=== PATIENT | male | born 1945 | race Caucasian/White ===

== ENCOUNTER → 2023-03-31 15:27 | Outpatient (REF) | payer MEDICARE, OTHER, SELFPAY | LOC: CLAB 15:27 | PROVIDERS: ATTENDING PHYSICIAN Nurse Practitioner | DX: N39.0 Urinary tract infection, site not specified (principal) | CPT/HCPCS: 87086 ==

== ENCOUNTER → 2023-04-20 10:59 | Outpatient (REF) | payer MEDICARE, OTHER, SELFPAY ==
[2023-04-20 12:55] LABS: PSA, Total - Diagnostic < 0.06 ng/ml (0.0-4.0)
== END ==
LOC: REG 10:59
PROVIDERS: ATTENDING PHYSICIAN Urology; FAMILY PHYSICIAN Internal Medicine
DX: N30.10 Interstitial cystitis (chronic) without hematuria (principal); C61 Malignant neoplasm of prostate
CPT/HCPCS: 36415; 84153

== ENCOUNTER → 2023-05-19 14:10 | Outpatient (REF) | payer MEDICARE, OTHER, SELFPAY | LOC: RAD 14:10 | PROVIDERS: ATTENDING PHYSICIAN Nurse Practitioner | DX: S80.02XA Contusion of left knee, initial encounter (principal) | CPT/HCPCS: 73564 ==

== ENCOUNTER → 2023-08-12 06:26 | Day surgery (SDC) | payer MEDICARE, OTHER, SELFPAY | LOC: GI 06:26 | PROVIDERS: ATTENDING PHYSICIAN Internal Medicine | DX: Z12.11 Encounter for screening for malignant neoplasm of colon (principal); D12.2 Benign neoplasm of ascending colon; K63.5 Polyp of colon; K57.30 Diverticulosis of large intestine without perforation or abscess without bleeding; K64.8 Other hemorrhoids; Z80.0 Family history of malignant neoplasm of digestive organs | CPT/HCPCS: 45385; 45380; 88305 ==

== ENCOUNTER → 2023-11-30 07:10 | Outpatient (REF) | payer MEDICARE, OTHER, SELFPAY ==
[2023-11-30 08:50] LABS: ALT (SGPT) 30 U/L (0-50); AST (SGOT) 28 U/L (17-59); Albumin 4.6 g/dl (3.5-5.0); Alkaline Phosphatase 55 U/L (38-126); Blood Urea Nitrogen 17 mg/dl (9-20); Calcium 9.4 mg/dl (8.4-10.2); Carbon Dioxide 24 mmol/L (22-30); Chloride 107 mmol/L (98-107); Glucose 113 mg/dl (70-99); HDL Cholesterol 59 mg/dl; LDL Cholesterol, Calculated 62 mg/dl; Potassium 4.1 mmol/L (3.5-5.1); Sodium 144 mmol/L (135-145); Total Bilirubin 1.3 mg/dl (0.2-1.3); Total Cholesterol 141 mg/dl (50-199); Triglyceride 100 mg/dl (10-149); Very Low Density Lipoprotein 20 mg/dl (0-30); eGFR > 60.00
[2023-11-30 09:06] LABS: Glycohemoglobin (HgbA1c) 5.7 % (4.0-5.6)
[2023-11-30 09:19] LABS: PSA, Total - Screen < 0.06 ng/ml (0.0-4.0); TSH 1.47 uIU/ml (0.47-4.68)
== END ==
LOC: REG 07:10
PROVIDERS: ATTENDING PHYSICIAN Internal Medicine
DX: Z00.00 Encounter for general adult medical examination without abnormal findings (principal); E78.00 Pure hypercholesterolemia, unspecified; Z85.46 Personal history of malignant neoplasm of prostate; R53.83 Other fatigue; I21.4 Non-ST elevation (NSTEMI) myocardial infarction; J98.11 Atelectasis
CPT/HCPCS: 36415; 80053; 80061; 83036; 84443; G0103

== ENCOUNTER 2024-10-17 17:03 | Inpatient (IN) | payer MEDICARE, SELFPAY ==
[2024-10-17] VITALS (9 sets, daily range): BP systolic 129–162; BP diastolic 72–95; BMI 32.5
--- NOTE | 2024-10-17 13:29 | ED.GENMED ---
History of Present Illness
General
Chief Complaint: Chest Pain
Source: patient
Exam Limitations: none
Time Seen by Provider: 10/17/24 13:17
History of Present Illness
History of Present Illness:
Note:
CHIEF COMPLAINT(S)
Light pressure and shortness of breath.
HISTORY OF PRESENT ILLNESS
The patient is a 79-year-old male with a past medical history significant for a triple coronary artery bypass surgery performed four years ago. He presented with symptoms of light pressure and shortness of breath experienced while performing
activities such as dealing with pollen and weeds, which caused him to feel unusually out of breath. The patient states, 'I had a triple bypass on the last few years, and light pressure just putting in the side, and I was out of breath.' He currently
feels fine and denies any present chest pressure. The patient also reports taking medications at night, including aspirin, except for glucosamine which is taken in the morning. He indicates that his pacemaker was recently checked and showed no signs
of malfunction, electrical disturbance, or myocardial infarction.
PAST MEDICAL AND SURIGICAL HISTORY
Triple coronary artery bypass graft performed four years ago.
CHRONIC MEDICAL CONDITIONS SIGNIFICANTLY AFFECTING CARE
History of coronary artery disease necessitating a triple bypass and use of a pacemaker.
MEDICATIONS
Aspirin (taken at night), Glucosamine (taken in the morning), other unspecified medications related to heart health.
REVIEW OF SYSTEMS
- Respiratory: Experienced shortness of breath while dealing with pollen and weeds.
- Cardiovascular: Previously experienced light pressure in the chest; currently, no pressure.
PHYSICAL EXAM
General: Alert, no acute distress.
Skin: Warm, dry.
Head: Normocephalic, atraumatic.
Neck: Supple, trachea midline.
Eye, Ears, Nose, Mouth, and Throat: Pupils equal, round, and reactive to light; oral mucosa moist.
Cardiovascular: S1, S2 heart sounds normal; regular rhythm due to pacemaker function.
Respiratory: Lungs clear to auscultation bilaterally; respirations non-labored.
Gastrointestinal: Abdomen soft, non-tender, not distended.
Extremities: No edema; equal pulses in all extremities.
Neurological: Alert and oriented to person, place, time, and situation; no focal neurological deficits observed.
Musculoskeletal: Normal range of motion, normal strength.
Psychiatric: Cooperative, appropriate mood and affect.
PLAN
- Obtain laboratory tests.
- Perform a chest X-ray to assess pulmonary and cardiac status.
- Monitor anxiety as a contributing factor to the patient�s presentation.
DIFFERENTIAL DIAGNOSIS
The Differential Diagnosis includes, in no particular order and is not limited to:
1. Angina pectoris
2. Exertional dyspnea
3. Congestive heart failure
4. Pulmonary embolism
5. Anxiety-induced shortness of breath
6. Pacemaker malfunction
7. Respiratory infection
8. Physical deconditioning
9. Aortic stenosis
10. Chronic obstructive pulmonary disease (COPD)
EKG
My independent EKG interpretation is:
- Time of EKG: [Not Provided]
- Rhythm: Atrioventricular (AV) dual-paced rhythm
- Heart Rate: 87 bpm
- MD Interval: [Not Provided]
- QRS Duration: [Not Provided, but noted as significant changes observed]
- QT Interval: [Not Provided]
- [place]: [Not Provided]
- Abnormalities: Prolonged conduction noted; significant change from prior EKG
- ST Segment Changes: [Not Provided]
- T Wave Inversions: [Not Provided]
- Other Arrhythmias: [Not Provided]
CARE-UPDATE
10/17/24 - 15:52
The 79-year-old male patient with paroxysmal tachycardia was evaluated by Dr. Hurt, an mortgage loan computation clerk. The decision was made to admit the patient for possible cardiac catheterization. Additional therapies are being considered, pending
further evaluation.
Disposition:
SUMMARY OF ENCOUNTER
The patient, a 79-year-old male, presented to the emergency department with a history of significant health issues, including previous coronary artery disease and a recent history of symptoms such as light pressure and shortness of breath. Despite
the patient feeling currently fine and not experiencing chest pain, he will be admitted for monitoring and assessment by a cardiology team, including an mortgage loan computation clerk, due to concerns of potential underlying cardiac arrhythmias and further
management.
DISPOSITION
Admit
MANAGEMENT OF THE PATIENTS CARE WAS DISCUSSED WITH
The patients care was discussed with the hospitalist and the cardiology team, including an mortgage loan computation clerk, to address concerns of potential toxin-fulminating ventricular tachycardia.
MEDICAL DECISION MAKING
-Number and Complexity of Problems Addressed: Chronic conditions affecting care include coronary artery disease and the use of a pacemaker. Differential diagnosis includes potential cardiac issues such as ventricular tachycardia, which necessitates
admission for further evaluation and management by cardiology specialists.
-Data:
Category 3
Discussion of management with hospitalist and supplier quality engineer, including an mortgage loan computation clerk, to evaluate and treat potential cardiac arrhythmias and ensure proper inpatient care.
DIAGNOSIS
1. Coronary artery disease status post triple coronary artery bypass graft, I25.10
2. Ventricular tachycardia evaluation, I47.2
Past History
Past History
ED Past Medical History: Arrthythmia, Cancer, HTN and Hypercholesterolemia
ED Past Surgical History: Urological (Prostatectomy)
Social History
Tobacco: Non-smoker
Personal:
Living: with family
Phy Exam
Physical Exam
Physical Exam:
.
Scores
Heart Score for Chest Pain Patients
STEMI patient?: No
History: Moderately Suspicious
ECG: Nonspecific Repolarization
Age: >/= 65 years
Risk Factors: >/= 3 Risk Factors or History of CAD
Troponin: </= Normal Limit
Heart Score for Chest Pain Patients: 6
Heart Score Risk: 20.3% MACE over next 6 weeks
Course
Orders/Labs/Results
Orders:
Orders
10/17/24 12:14
Electrocardiogram (*1) Urgent
Reason for Study: Chest Pain
EKG- Treatment ONCE
10/17/24 13:16
Complete Blood Count/With Diff Urgent
Comprehensive Metabolic Panel Urgent
NT-proBNP Urgent
Comment: ADD ON
Troponin I Urgent
10/17/24 13:31
Add On- LAB Urgent
Tests Added?: bnp
IV Insert/Care/Rem.- Treatment PRN
CR Chest - 2 Views Urgent
Comment:
Reason For Exam: short of breath
10/17/24 15:49
Aspirin Chewable [Low Strength Aspirin] 324 mg PO NOW STA
10/17/24 16:33
Admit/Transfer Patient As Directed
Co-Sign Provider:
Level of Care: Inpatient admission
Assign to:: IVU
Physician / Group: Samson Castellano
Diagnosis: chest pain, paroxysmal ventricular tachycardia
Reason for Hospitalization: chest pain, paroxysmal ventricular tachycardia
Expected length of stay greater than two midnights?: Yes
ELOS- Estimated Length of Stay in days: 3
I certify the patient meets the requirements for IP care: Yes
10/17/24 16:34
PRN Pain Medication Management As Directed
May give lesser potent ordered pain med per pt: Yes
preference::
Protocol:: Medication orders for pain may be administered in a
manner that supports deferring to patient preference
when the pt is:
- Requesting an ordered lesser potent pain medication.
Least to most potent pain medications are defined
as: acetaminophen < NSAID < tramadol < opioids
(morphine, oxycodone, hydromorphone).
- Requesting a lesser dose of the same medication IF
ORDERED.
- Requesting a less intrusive route of administration
if both routes are prescribed by the provider (PO <
IV).
10/17/24 16:36
Code Status As Directed
Resuscitation Status: Full Code
10/17/24 17:00
Troponin I Routine
10/17/24 20:00
Metoprolol Xl [Toprol Xl] 50 mg PO BID
10/18/24 Breakfast
NPO
Allow oral meds: Yes
Allow clear liquids: No
Cardiovascular Evaluation IN AM
10/18/24 08:00
Aspirin Chewable [Low Strength Aspirin] 81 mg PO DAILY
Abnormal Lab Results
10/17/24
13:16
MCH 31.1 H pg
(27.0-31.0)
Lymphocytes % 19.4 L %
(20.5-51.1)
Glucose 119 H mg/dl
(70-99)
10/17/24 13:16
10/17/24 13:16
Vital Signs
Initial and Last Documented VS:
Initial Vital Signs
Temp Pulse Resp BP Pulse Ox
98.5 F 76 18 158/95 95
10/17/24 12:15 10/17/24 12:15 10/17/24 12:15 10/17/24 12:15 10/17/24 12:15
Last Documented Vital Signs
Temp Pulse Resp BP Pulse Ox
98.5 F 68 17 155/81 95
10/17/24 12:15 10/17/24 16:30 10/17/24 16:30 10/17/24 16:00 10/17/24 15:15
*Pulse Oximetry
SaO2: 97
Oxygen Mode of Delivery: Room air
Patient hypoxic: no
*Critical Care Note
Total Time (30-74mins, 75-104mins- exclusive of procedures): Not Applicable
ED Attending Note
-
Portions of this chart may have been created with voice recognition software.� Occasional wrong word or��sound alike� substitutions may have occurred due to the inherent limitations of voice recognition software.
Discharge Plan
Departure
Patient Disposition: Admit
Date of Disposition: 10/17/24
Time of Disposition: 15:50
Admit to: IVU
Presentation/result/management discussed w/ accepting MD/DO: Hospitalist
Condition: Good
Discharge Problem:
Ventricular tachycardia (paroxysmal), Chest pain
Prescriptions:
No Action
rivaroxaban [Xarelto] 20 MG tablet
20 mg PO QPM
pantoprazole 40 MG tablet,delayed release (DR/EC)
40 mg PO DAILY Qty: 30 2RF
Metamucil Packet
1 packet PO MOWEFR@0800
glucosamine sulfate [Glucosamine] 500 mg Tablet
500 mg PO DAILY
amitriptyline 10 mg tablet
10 mg PO HS
diazepam 2 mg tablet
2 mg PO HS
metoprolol succinate 50 MG tablet extended release 24 hr
50 mg PO HS
rosuvastatin 40 MG tablet
40 mg PO HS
Referrals:
Ap Pulido MD [Family Provider, Internal Medicine]
Interventions
Interventions:
*Risk Screen - Suicide Last Done: 10/17/24 12:15
*General Assessment Last Done: 10/17/24 12:15
*Neglect/Abuse Screening Last Done: 10/17/24 13:13
*ED- Fall Risk Assessment Last Done: 10/17/24 13:13
*ED COVID-19 Vaccine History Last Done: 10/17/24 13:13
ED- Cardiac Assessment Last Done: 10/17/24 13:13
Discharge Date and Time
Print Language: LITHUANIAN
[2024-10-17 13:33] LABS: Hematocrit 44.5 % (39.0-52.0); Hemoglobin 15.0 g/dL (13.0-18.0); Mean Corp Hgb Conc. 33.7 g/dL (33.0-37.0); Mean Corpuscular Volume 92.1 fL (80.0-94.0); Nucleated Red Blood Cells % 0 % (-); Platelet Count 149 10^3/uL (130-400); Red Cell Dist. Width 13.2 % (11.5-14.5)
[2024-10-17 13:41] LABS: ALT (SGPT) 41 U/L (0-50); AST (SGOT) 29 U/L (17-59); Albumin 4.8 g/dl (3.5-5.0); Alkaline Phosphatase 58 U/L (38-126); Blood Urea Nitrogen 16 mg/dl (9-20); Calcium 9.5 mg/dl (8.4-10.2); Carbon Dioxide 26 mmol/L (22-30); Chloride 106 mmol/L (98-107); Estimated Creatinine Clearance 82 ml/min; Glucose 119 mg/dl (70-99); Potassium 4.0 mmol/L (3.5-5.1); Sodium 140 mmol/L (135-145); Total Protein 7.6 g/dl (6.3-8.2); eGFR > 60.00
[2024-10-17 13:53] LABS: Troponin I < 0.012 ng/ml
--- NOTE | 2024-10-17 15:38 | CON.CAR ---
Addendum entered and electronically signed by Rayo Hurt MD 10/17/24 16:15:
Patient seen and examined
Agree with ADRIANNA Mcnair's note and assessment
Agree with ADRIANNA Mcnair's plan
Discussed presentation with Mr. Bernal. He has had dyspnea on exertion with moderate to strenuous activity for about 2 weeks. Although it is impossible to correlate his NSVT occurred on 13 October which was during his dyspneic on exertion period.
He came to the ER today after having a difficult day yesterday where he noticed dyspnea on exertion and new chest pressure when he was weeding in the garden which lasted 5 to 10 minutes and was better with rest. His ECG is intermittently paced and
he is pain-free when seen. Laboratory values are pending. It does not appear that he had symptoms from the NSVT. He has not had any significant testing since 2020 in terms of echo or stress testing. In 2020 he had CABG x 3 with PRICE to the LAD,
SVG to diagonal, SVG to OM and left atrial appendage clip.
He is appropriately atrial and ventricular sensing and pacing on telemetry.
Physical examination
Alert and x 3
JVP 6
HEENT normocephalic atraumatic
Lungs clear to auscultation bilaterally
Cor regular no murmurs rubs or gallops
Abdomen soft nontender positive bowel sounds
Intact pulses distally in the ankle
Nonfocal neurologically
Remainder as per ADRIANNA Mcnair's note and assessment
Assessment:
Presentation with exertional chest pressure, dyspnea on exertion
Negative trop x1
8 seconds VT 10/13/24
CAD status post CABG x 3 PRICE to LAD, SVG to diagonal, SVG to OM, BINDU clip 10/10/2020
Postoperative paroxysmal atrial fibrillation
History of suspected TIA
Chronic anticoagulation with Xarelto
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
History of pleural effusion status post-thoracentesis 10/2020 post bypass
Hypertension
Hyperlipidemia
History of prostate cancer
Interstitial cystitis
Daily ETOH
Intermittent AV conduction on telemetry
ECHO 11/2020: EF 59%, abnormal septal motion consistent with postop status, stage II diastolic dysfunction, pacer wire in RV, MAC, prolapse of posterior mitral leaflet present, mild to moderate MR, mild TR, PAP 26 mmHg
Plan:
- Patient presents with episode of exertional chest discomfort and shortness of breath, reminiscent of his prior anginal symptoms leading to bypass surgery, however less severe
- On arrival to ER, device interrogation showed 8-second episode of VT on 10/13/2024, patient asymptomatic
- Initial troponin negative, trend serially
- No present chest pain
- CXR pending
- Check echo
- Discussed checking cardiac catheterization in the setting of prior CAD with bypass in 2020, and now with chest pain, shortness of breath and episode of VT. will plan for 10/18 as long as interventional schedule allows, reviewed procedure with
patient today. NPO after midnight
- Last dose of Xarelto was 818 PM, will hold. He does have a history of left atrial appendage clip
- If second troponin uptrending, would consider for IV heparin
- In AV paced rhythm on review of EKG and telemetry
- Will increase Toprol to 50 mg twice daily, from 50 mg daily
- Add aspirin, give 324 mg now followed by 81 mg daily
- Check CVE. Continue OP Crestor
Original Note:
Consultation
Consultation Request
Date/Time Consultation Performed: 10/17/24
Requesting Provider: Dr. Ya
Performing Provider: Terrie Mcnair PA-C for Dr. Hurt
Reason for Consultation: CP, NSVT
Medical History
-
Chief Complaint: CP
History of Present Illness:
Patient is a 79-year-old male with past medical history of CAD status post CABG x 3 PRICE to LAD, SVG to diagonal, SVG to OM, BINDU clip on 10/10/2020. He had postoperative atrial fibrillation and has been maintained on Xarelto given his history of
suspected TIA. He also has history of prostate cancer, interstitial cystitis, complete heart block status post Medtronic pacemaker, as well as history of brief NSVT. He states since his bypass surgery he has been feeling very well without any new
cardiac issues. He reports then on Wednesday he started noting he was feeling tired. Yesterday he reports he was working outside pulling weeds and noted chest pressure with doing so, as well as dyspnea on exertion every time he stood up. He reports
the symptoms are similar to prebypass symptoms, however less severe. On arrival to the ER he had device interrogation which showed 8 seconds of NSVT on 10/13/2024. Patient asymptomatic. Cardiology consulted for evaluation.
PMH:
CAD status post CABG x 3 PRICE to LAD, SVG to diagonal, SVG to OM, BINDU clip 10/10/2020
Postoperative paroxysmal atrial fibrillation
History of suspected TIA
Chronic anticoagulation with Xarelto
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
History of pleural effusion status postthoracentesis 10/2020 post bypass
Hypertension
Hyperlipidemia
History of prostate cancer
Interstitial cystitis
Daily ETOH
Past Medical History
Past Medical History: Other (in HPI)
Social History
Tobacco: Non-Smoker
Alcohol: Occasional (3-4 beers daily)
Living: Alone
Employment: Retired
Family History
Family History: CAD (bypass in brother) and Other (CHF in father)
Allergies / Home Medications
Allergy/AdvReac Type Severity Reaction Status Date / Time
No Known Allergies Allergy Verified 10/17/24 12:18
�Medication �Instructions �Recorded �Confirmed �Type
rivaroxaban 20 mg tablet (Xarelto) 20 mg PO QPM Blood clot 10/06/20 12/26/20 History
prevention/tx
amiodarone 200 mg tablet (Pacerone) 200 mg PO BID #30 tabs 10/15/20 11/12/20 Rx
furosemide 40 mg tablet (Lasix) 40 mg PO DAILY #7 tabs 10/15/20 12/26/20 Rx
metoprolol succinate 50 mg 50 mg PO DAILY #30 tabs 10/15/20 12/26/20 Rx
tablet,extended release 24 hr
pantoprazole 40 mg tablet,delayed 40 mg PO DAILY #30 tabs 10/15/20 12/26/20 Rx
release
potassium chloride 20 mEq 20 meq PO DAILY #7 tabs 10/15/20 12/26/20 Rx
tablet,extended
release(part/cryst) (Klor-Con M)
rosuvastatin 40 mg tablet 40 mg PO QPM #30 tabs 10/15/20 12/26/20 Rx
Review of Systems
-
History Source: Patient
All other systems: Negative unless noted
Physical Exam
Vital Signs
Temp Pulse Resp BP Pulse Ox
98.5 F 70 17 162/94 97
10/17/24 12:15 10/17/24 13:15 10/17/24 13:15 10/17/24 13:08 10/17/24 13:29
Lab Results
10/17/24 13:16
10/17/24 13:16
Troponin I < 0.012 ng/ml 10/17/24 13:16
Efk-I-Tnjothgephb Pept 238 pg/ml 10/17/24 13:16
Physical Exam
General: No Apparent Distress and Comfortable
HEENT: Normocephalic, Anicteric and Moist Mucous Membranes
Respiratory: Clear and Non Labored Respirations
Cardiac: S1/S2 and Regular Rhythm
GI: Soft, Non Tender, Non Distended and Normal Bowel Sounds
Musculoskeletal: No Clubbing, No Cyanosis and No Edema
Skin: Warm and Dry
Neuro: AO x 3
Impression / Plan
-
Primary Settlement Clerk: Dr. Vallejo
Assessment:
Presentation with CP, SOB
Negative trop x1
8 seconds VT 10/13/24
CAD status post CABG x 3 PRICE to LAD, SVG to diagonal, SVG to OM, BINDU clip 10/10/2020
Postoperative paroxysmal atrial fibrillation
History of suspected TIA
Chronic anticoagulation with Xarelto
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
History of pleural effusion status postthoracentesis 10/2020 post bypass
Hypertension
Hyperlipidemia
History of prostate cancer
Interstitial cystitis
Daily ETOH
ECHO 11/2020: EF 59%, abnormal septal motion consistent with postop status, stage II diastolic dysfunction, pacer wire in RV, MAC, prolapse of posterior mitral leaflet present, mild to moderate MR, mild TR, PAP 26 mmHg
Plan:
- Patient presents with episode of exertional chest discomfort and shortness of breath, reminiscent of his prior anginal symptoms leading to bypass surgery, however less severe
- On arrival to ER, device interrogation showed 8-second episode of VT on 10/13/2024, patient asymptomatic
- Initial troponin negative, trend serially
- No present chest pain
- CXR pending
- Check echo
- Discussed checking cardiac catheterization in the setting of prior CAD with bypass in 2020, and now with chest pain, shortness of breath and episode of VT. will plan for 10/18 as long as interventional schedule allows, reviewed procedure with
patient today. NPO after midnight
- Last dose of Xarelto was 818 PM, will hold
- If second troponin uptrending, would consider for IV heparin
- In AV paced rhythm on review of EKG and telemetry
- Will increase Toprol to 50 mg twice daily, from 50 mg daily
- Add aspirin, give 324 mg now followed by 81 mg daily
- Check CVE. Continue OP Crestor
Data Reviewed
-
EKG: Tracing Personally Visualized and interpreted
Medical Tests (Nuc Med, Echo etc): Report Reviewed by me
Labs: Labs Reviewed by me
Old Records: Reviewed
--- NOTE | 2024-10-17 15:53 | HPS.HSE ---
Family Physician
-
Family Physician: Ap Pulido
Chief Complaint
-
exertional dyspnea and chest pressure
History of Present Illness
Patient is a 79-year-old male with past medical history significant for hypertension, hyperlipidemia, complete heart block, paroxysmal atrial fibrillation, ventricular tachycardia and Hx prostate cancer who presented to [facility] ED for evaluation of
exertional dyspnea and chest pressure. Patient reports bending at waist yesterday to [employer] and every time he stood up he felt mildly short of breath and had mild chest pressure. He reports that he did not have an appetite the rest of the day
and then today he says his intuition just kept telling him something was off and he needed to come to ED for evaluation. He had triple bypass completed in 2020, and states no significant cardiac testing since then. Patient reports he is currently
symptom free.
Medical History
Past Medical History
Past Medical History: Reports Other
Additional Past Medical History:
hypertension
hyperlipidemia
complete heart block
paroxysmal atrial fibrillation
ventricular tachycardia
Hx prostate cancer
Past Surgical History: Reports Other
Additional Past Surgical History:
Prostate cancer removed 10/2010
Left L4 and L5 TFESI 04/15/2017
Right Shoulder RTC repair, SAD, biceps and SLAP debridement (DOS 9.8.2020) 11/07/2019
Right C7-T1 IL LEILANI 01/22/2020
Right C7-T1 ILESI 05/06/2020
coronary artery bypass grafting x 3 using PRICE (free graft) to LAD, SV to diag., SV to terminal OM branch of L circ. and ELAA clip (40mm) - (MPT - 10/10/20) 09/2020
LT L5 TF LEILANI NO SED 08.24.22
LT S1 TFESI NO SED 09/22/22
bilateral cataract extraction 08/2024
Social History
Tobacco: Non-smoker
Alcohol: Occasional (drinks 3-4 beers, 5x a week, last drink Wednesday10/15/2024)
Drug: None
Personal:
Living: With Family
Employment: Retired
Family History
Family History: Other (Brother: CAD with bypass; Father: CHF)
Allergies / Home Medications
Allergies reflects when Allergies were last updated in [email or web address].
Home Medications with original date entered in [email or web address]
Allergy/Medication List:
Allergies
Allergy/AdvReac Type Severity Reaction Status Date / Time
No Known Allergies Allergy Verified 10/17/24 12:18
Home Medications
rivaroxaban 20 mg tablet (Xarelto) 20 mg PO QPM Blood clot prevention/tx 10/06/20
pantoprazole 40 mg tablet,delayed release 40 mg PO DAILY #30 tabs 10/15/20
amitriptyline 10 mg tablet 10 mg PO HS 10/17/24
diazepam 2 mg tablet 2 mg PO HS 10/17/24
glucosamine sulfate 500 mg tablet (Glucosamine) 500 mg PO DAILY 10/17/24
metoprolol succinate 50 mg tablet,extended release 24 hr 50 mg PO HS 10/17/24
psyllium 1 packet PO MOWEFR@0800 Gastrointestinal Issue 10/17/24
rosuvastatin 40 mg tablet 40 mg PO HS 10/17/24
Review of Systems
-
History Source: Patient
Constitutional: Denies Fever or Chills
EENT: Denies Sore Throat
Respiratory: Reports Trouble Breathing (exertional dyspnea ); Denies Cough
Cardiac: Reports Chest Pain
Abdomen/GI: Denies Nausea, Vomiting or Diarrhea
Skin: Denies Rash
Neurological: Denies Dizzy, Headache or Numbness
Psych: Reports Calm
Physical Exam
Vital Signs
Vital Signs
Temp Pulse Resp BP Pulse Ox
98.5 F 72 18 138/75 95
10/17/24 12:15 10/17/24 15:30 10/17/24 15:15 10/17/24 15:00 10/17/24 15:15
Physical Exam
General: Well Developed, Well Nourished, No Apparent Distress and Obese
HEENT: NormoCephalic, Moist mucous membranes and Atraumatic
Respiratory: Clear and Non Labored Respirations
Cardiac: S1/S2 and Regular Rhythm; No Murmur, Rub or Gallop
Breast: Deferred by me
GI: Soft, Non Tender, Non Distended and Normal Bowel Sounds
Rectal: Deferred by Provider
Genito-urinary: Deferred by me
Musculoskeletal: No Clubbing, No Cyanosis and No Edema
Skin: Warm and IV/Catheter Site
Neuro: Awake, AO x 3 and Nonfocal/grossly intact
Hematologic/Lymphatic: No Lymphadenopathy
Psych: Calm and Intact Judgment/Insight
Laboratory Results
-
10/17/24 13:16
10/17/24 13:16
Laboratory Results
Total Bilirubin 1.2 mg/dl (0.2-1.3) 10/17/24 13:16
AST 29 U/L (17-59) 10/17/24 13:16
ALT 41 U/L (0-50) 10/17/24 13:16
Alkaline Phosphatase 58 U/L (38-126) 10/17/24 13:16
Troponin I < 0.012 ng/ml 10/17/24 13:16
Data Reviewed
-
Diagnostic Radiology: Report Reviewed by me (CXR: No acute cardiopulmonary process.)
Medical Tests (Nuc Med, Echo, EKG etc): Report Reviewed by me (EKG: AV dual-paced rhythm with prolonged AV conduction)
Lab Data: Labs Reviewed by me
Impression/Plan
-
IMPRESSION/PLAN:
#chest pain with exertional dyspnea
trop <0.012
CXR: No acute cardiopulmonary process.
EKG: AV dual-paced rhythm with prolonged AV conduction
device interrogation showed 8-second episode of VT on 10/13/2024, patient asymptomatic at that time
- Admit to IVU
- Consult Cardiology
- NPO at midnight for possible lab scientist tomorrow
- Hold Xarelto
- trend troponin
- consider heparin gtt if troponin trends upward
- increase metoprolol 50mg BID from daily
- start aspirin
#hypertension
- increase metoprolol as noted above
#hyperlipidemia
- continue rosuvastatin
#paroxysmal atrial fibrillation
- Hold Xarelto for possible lab scientist
- increase metoprolol as noted above
#complete heart block
s/p pacemaker
#ventricular tachycardia
#Hx prostate cancer
Code status: full code
DVT prophylaxis: SCDs
[2024-10-17] MEDS: LOW STRENGTH ASPIRIN 324 MG PO (16:04)
--- NOTE | 2024-10-17 16:05 | W.PN.UPDATE ---
Update Note
Progress Note Update
This note serves as an addendum to the H&P by story editor ELFEGO�
Chayo Gomez
HPI
79M HX CAD status post CABG 10/10/2020, HX postop AF on Xarelto, HX f suspected TIA, HX prostate cancer, interstitial cystitis, CHB s/p Medtronic PPM, brief HX NSVT
- since his bypass surgery he has been feeling very well without any new cardiac issues.
- on Wednesday he started noting he was feeling tired.
- Yesterday he reports he was working outside pulling weeds and noted chest pressure with exertion as well asDoE
- reports the symptoms are similar to prebypass symptoms, however less severe.
On arrival to the ER he had device interrogation which showed 8 seconds of NSVT on 10/13/2024.
Patient asymptomatic. Cardiology consulted for evaluation.
Relevant VS
Temp Pulse Resp BP Pulse Ox
98.5 F 72 18 138/75 95
10/17/24 12:15 10/17/24 15:30 10/17/24 15:15 10/17/24 15:00 10/17/24 15:15
PE
Gen: NAD
HEENT: moist OM
Neck: supple
Lungs: CTA
Cor: RRR S1 S2
Abdomen:�soft and benign exam
PRESCHOOL LEAD TEACHER: AAO3
MS:no edema
Psych: nl mood and affect
Relevant Data
10/17/24
13:16
MCH 31.1 H
Lymphocytes % 19.4 L
Glucose 119 H
11/2020 TTE
- EF 59%, abnormal septal motion consistent with postop status, stage II diastolic dysfunction, pacer wire in RV, MAC, prolapse of posterior mitral leaflet present
- mild to moderate MR, mild TR, PAP 26 mmHg
ASSESSMENT & PLAN
New exertional CP and [place]: Negative trop x1
8 seconds VT 10/13/24 pr device interrogation on 10/13/2024
- In AV paced rhythm on review of EKG and telemetry
- currently CP free
- asymptomatic
- Initial NEG 1st TPNI , trend serially
- CXR pending
- Pending TTE
- Per Card - to consider cardiac catheterization in the setting of prior CAD with bypass in 2020, and now with chest pain, shortness of breath and episode of VT. ( tentative plan for CC on 10/18)
- NPO after MN
- Last dose of Xarelto was 10/16 PM, will hold
- If second TPNI up-trending, would consider for heparin gtt per card
- Observe on escaladed dose of Toprol to [address] of 50 mg daily
- Add aspirin, give 324 mg now followed by 81 mg daily
- Check CVE - on [employer] Crestor
PMHX:
CAD status post CABG x 3 PRICE to LAD, SVG to diagonal, SVG to OM, BINDU clip 10/10/2020
Postoperative paroxysmal atrial fibrillation
History of suspected TIA
Chronic anticoagulation with Xarelto
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
History of pleural effusion status postthoracentesis 10/2020 post bypass
Hypertension
Hyperlipidemia
History of prostate cancer
Interstitial cystitis
Daily ETOH
DVT Px: SCD while holding xarelto for pending CC
Full code
IP TLM
--- NOTE | 2024-10-17 17:18 | CM ---
CM reviewed chart and met with pt bedside in ED. Lives alone in 2 story home, [address], has first floor set up.
Independent in ADLs, personal care and ambulation at baseline. No assistive device. Only DME is wheelchair that was his wifes.
HX [facility] after bypass surgery, no hx SNF.
PCP: [facility]
Pharmacy: [facility]
Anticipate discharge home, CM will continue to follow for any discharge planning needs.
[2024-10-17 18:01] LABS: Troponin I < 0.012 ng/ml
--- NOTE | 2024-10-17 18:40 | PTCARENOTE ---
Received pt as admit from ED. AAOx3. AV-paced on tele, HRs 60s-70s. SpO2 97% on room air. VSS. Pt denies chest pain/discomfort at this time. Troponin drawn and sent to lab. EKG obtained. NPO at midnight for cardiac cath tomorrow. Pt resting in bed,
call wright in reach.
[2024-10-17 19:09] LABS: Troponin I < 0.012 ng/ml
[2024-10-17] MEDS: TOPROL XL 50 MG PO (19:49)
[2024-10-17] MEDS: VALIUM 2 MG PO (21:32)
[2024-10-17] MEDS: CRESTOR 40 MG PO (21:32)
[2024-10-17] MEDS: ELAVIL 10 MG PO (21:32)
[2024-10-18] VITALS (11 sets, daily range): BP systolic 118–158; BP diastolic 78–94; BMI 32.5; BMI 31.1
[2024-10-18 00:14] LABS: Troponin I < 0.012 ng/ml
[2024-10-18 05:50] LABS: HDL Cholesterol 60 mg/dl; LDL Cholesterol, Calculated 79 mg/dl; Very Low Density Lipoprotein 23 mg/dl (0-30)
--- NOTE | 2024-10-18 06:33 | PTCARENOTE ---
Pt NSR on monitor. VSS. Denies SOB or chest pressure. NPO after midnight. Ambulates independently in the room. Call kyle w/in reach
[2024-10-18 06:41] LABS: Glycohemoglobin (HgbA1c) 5.7 % (4.0-5.6)
--- NOTE | 2024-10-18 07:10 | W.PN.HOSP.TC ---
Today's Communication/Plan
-
- likely catheterization today
Assessment / Plan
Assessment / Plan
In summary, 79 yo M
# chest pain and dyspnea on exertion
- possible cath today
- metoprolol succinate 50mg bid
- rivaroxaban being held
- aspirin started
- troponin trend negative
- cardiology following
# ventricular tachycardia episode
- asymptomatic
- detected on device interrogation
- possible catheterization today
# paroxysmal atrial fibrillation
- rivaroxaban held
- metoprolol increased
# Complete heart block
- pacemaker
# Chronic issues per below
# HTN - metoprolol increased
# HLD - continue statin
# History of prostate cancer
# Interstitial cystitis - continue amitryptaline
# Osteoarthritis
Anticipated Discharge: 24 - 48 hours
Subjective/Interval History
-
Date of Service: October 18, 2024
79 yo M PMH CAD, CABG in 2020, complete heart block s/p medtronic pacemaker, atrial fibrillation on rivaroxaban, suspected TIA, prostate cancer, interstitial cystitis, osteoarthritis
[place] tired since wednesday and chest pressure and dyspnea on exertion (gardening)
In the ED, VS stable,
labs notable for negative troponin
EKG showed AV dual-paced rhythm with prolonged AV conduction
device interrogation = 8-second episode of Vtach on 10/13/24, asymptomatic
CXR: unremarkable
He was admitted to IVU for further management.
This morning, he feels well, is NPO for likely cath today
Objective Data
-
Labs:
proBNP 238
troponin < 0.012
HbA1c 5.7%
Electrolytes within normal limits
CXR
IMPRESSION:
No acute cardiopulmonary process.
Vital Signs:
Vital Signs
Temp Pulse Resp BP Pulse Ox
97.5 F 66 16 158/86 96
10/18/24 04:48 10/18/24 00:15 10/18/24 04:48 10/17/24 22:53 10/18/24 04:48
I&O
10/17/24 10/18/24 10/19/24
06:59 06:59 06:59
Intake Total 200 / 200
Balance 200 / 200
Review of Systems
-
History Source: Patient
Constitutional: Reports No Symptoms
EENT: Reports No Symptoms Reported
Respiratory: Reports Trouble Breathing (on exertion)
Cardiac: Reports Chest Pain (pressure on exertion)
Abdomen/GI: Reports No Symptoms
Genitourinary: Reports No Symptoms
Musculoskeletal: Reports Joint Pain
Skin: Reports No Symptoms
Neuro: Reports No Symptoms
Physical Exam
-
HEENT: Normocephalic and Atraumatic
Respiratory: Clear to Auscultation
Cardiac: Regular Rhythm and Other (no murmurs on my exam)
GI: Soft and Nontender
Musculoskeletal: No Edema
Neuro: Awake and Alert
Psych: Calm
[2024-10-18] MEDS: PROTONIX 40 MG PO (08:38)
[2024-10-18] MEDS: TOPROL XL 50 MG PO ×2 (08:38→20:56)
[2024-10-18] MEDS: LOW STRENGTH ASPIRIN 81 MG PO (08:38)
--- NOTE | 2024-10-18 13:50 | PTCARENOTE ---
Pt went to laboratory associate for cardiac cath.
--- NOTE | 2024-10-18 15:15 | PTCARENOTE ---
Pt returned from labor relations analyst A,A+Ox3, denies pain. R groin dsg D+I. L radial arm bands intact. Good R pedal and L radial pulses.
--- NOTE | 2024-10-18 16:52 | ITS.CL.CATH ---
Account Management Assistant - Catheterization
Cardiac Catheterization
Procedure Report:
LEFT HEART CATHETERIZATION
Date of Procedure: October 18, 2024
Referring: Dr. Rayo Hurt
PROCEDURES:
1. Left heart catheterization, coronary angiogram.
2. Moderate sedation.
3. Selective graft angiography
INDICATION: Concern for unstable angina. Of note patient underwent a coronary artery bypass grafting in 2020 and has a free PRICE graft to the LAD coming off the saphenous vein graft to the diagonal branch from the aorta and a saphenous vein graft
to OM 3
ACCESS: Right common femoral artery, 6 [place] sheath, under ultrasound guidance using a micropuncture kit
Of note, We initially attempted left radial artery access however given difficulty advancing the wire this access site was aborted.
HEMODYNAMICS : (mmHg)
AO (s/d) : 149/52
LVEDP : 13
No significant gradient across the aortic valve to suggest aortic stenosis.
CORONARY FINDINGS
Dominance: Left
Left Main Trunk (LMT): There is a heavily calcified 90 to 95% mid left main stenosis.
Left Anterior Descending Artery (LAD): The LAD appears to be proximally 100% occluded with a patent PRICE graft to the LAD and a patent saphenous vein graft to a large diagonal branch with mild to moderate diffuse atherosclerotic plaque in the [place]
vessel.
Left Circumflex Artery (LCx): Large caliber dominant vessel that gives off 2major obtuse marginal (OM) branches as it courses along the atrio-ventricular (AV) groove. OM1 is a very small caliber vessel with mild luminal irregularities. OM 2 is
being supplied by a patent saphenous vein graft.
Right Coronary Artery (RCA): Small caliber nondominant vessel without significant coronary artery disease.
GRAFT ANGIOGRAPHY:
1. PRICE to LAD: Free PRICE graft coming off the saphenous vein graft from the aorta which supplies the diagonal. Widely patent.
2. Saphenous vein graft to large diagonal: Widely patent
3. Saphenous vein graft to OM is widely patent.
SEDATION: 48 minutes of procedural sedation was utilized. IV Midazolam and IV Fentanyl were administered. An independent medical equipment sales was present to assist with and help manage the patient's level of consciousness and physiologic status.
RADIATION SUMMARY: Fluoro Time (min): 5.9, Dose (mGy): 727.06 DAP (Gy.cm2) : 53.84
Femoral angiography: Femoral arteriotomy is noted to be above the bifurcation and below the inferior epigastric artery. There is minimal luminal irregularities in the visualized external iliac and femoral vessels.
Closure Device: 1. Radial band were placed over the left radial artery with successful hemostasis.
2. 6 [place] Angio-Seal was placed with successful hemostasis over the right common femoral artery.
CONCLUSIONS
1. Severe [place] coronary artery disease and a left dominant circulation.
2. All 3 grafts are widely patent.
3. LVEDP of 13 mmHg.
RECOMMENDATIONS
1. Wean radial band per protocol. Monitor right hand perfusion and for bleeding from the radial site following removal of the vascular-band following trans-radial access.
2. Bedrest per protocol after groin access.
3 continue aggressive medical therapy and risk factor modification for secondary CAD prevention.
Copy to: Rayo Hurt
Savannah Orta MD, [facility], [facility]
[2024-10-18] MEDS: CRESTOR 40 MG PO (20:56)
[2024-10-18] MEDS: VALIUM 2 MG PO (20:56)
[2024-10-18] MEDS: ELAVIL 10 MG PO (20:56)
[2024-10-19 03:56] VITALS: BP 137/80
[2024-10-19 04:06] VITALS: BMI 31.1
[2024-10-19 04:26] LABS: Hematocrit 44.9 % (39.0-52.0); Hemoglobin 15.2 g/dL (13.0-18.0); Mean Corp Hgb Conc. 33.9 g/dL (33.0-37.0); Mean Corpuscular Volume 92.8 fL (80.0-94.0); Nucleated Red Blood Cells % 0 % (-); Platelet Count 147 10^3/uL (130-400); Red Cell Dist. Width 13.3 % (11.5-14.5)
[2024-10-19 04:43] LABS: Blood Urea Nitrogen 17 mg/dl (9-20); Calcium 9.6 mg/dl (8.4-10.2); Carbon Dioxide 23 mmol/L (22-30); Chloride 108 mmol/L (98-107); Estimated Creatinine Clearance 92 ml/min; Glucose 101 mg/dl (70-99); Potassium 4.0 mmol/L (3.5-5.1); Sodium 138 mmol/L (135-145); eGFR > 60.00
--- NOTE | 2024-10-19 05:53 | PTCARENOTE ---
pt AV paced on monitor. VSS. Pt denies any pain or discomfort. left redial and rt groin post cath dsg DCI. Pt ambulates independently in the room. Call kyle w/in reach
--- NOTE | 2024-10-19 07:08 | W.PN.HOSP.TC ---
Today's Communication/Plan
-
- discharge today
Assessment / Plan
Assessment / Plan
In summary, 79 yo M
# Stable angina
# chest pain and dyspnea on exertion
- troponin trend negative
- catheterization was unremarkable
- per cardiology, increase metoprolol succinate to 50mg PO bid and okay to discharge
- continue xarelto, stop aspirin
- outpatient follow-up with cardiology has been arranged
# ventricular tachycardia episode
- asymptomatic
- per cardiology, No ventricular ectopy seen on review of telemetry
# paroxysmal atrial fibrillation
- resume xarelto
- increase metoprolol succinate to 50mg bid
# Complete heart block
- pacemaker
# Chronic issues per below
# HTN - metoprolol succinate 50mg po bid
# HLD - continue statin
# History of prostate cancer
# Interstitial cystitis - continue amitryptaline
# Osteoarthritis
Disposition: discharge today
Anticipated Discharge: Today
Subjective/Interval History
-
Date of Service: October 19, 2024
feels great
cath was unremarkable
wants to go home
Objective Data
-
Labs:
Laboratory Results
10/19/24
04:00
WBC 8.1
Hgb 15.2
Hct 44.9
Plt Count 147
Sodium 138
Potassium 4.0
Chloride 108 H
Carbon Dioxide 23
BUN 17
Creatinine 0.7
Glucose 101 H
Calcium 9.6
echo
SUMMARY
1. Normal left ventricular size, wall thickness and systolic function. No regional wall motion abnormalities are seen.
2. Ejection fraction is 50-55% by visual assesment.
3. Right ventricular cavity size cavity is mildly dilated.
4. Right ventricular systolic function is within normal limits.
5. Pacer wire noted in the right heart.
6. Mild mitral annular calcification. mild to moderate mitral valve regurgitation.
7. Tricuspid valve opens normally. moderate tricuspid regurgitation. Estimated pulmonary artery pressure of 21 mmHg assuming a right atrial pressure of 3 mmHg.
8. When compared to prior study on 12/09/2020, left ventricle systolic function is 50-55% (previously 59%); no other significant changes.
cardiac catheterization
CONCLUSIONS
1. Severe [place] coronary artery disease and a left dominant circulation.
2. All 3 grafts are widely patent.
3. LVEDP of 13 mmHg.
Vital Signs:
Vital Signs
Temp Pulse Resp BP Pulse Ox
97.6 F 61 16 137/80 94
10/19/24 03:54 10/19/24 06:45 10/19/24 03:54 10/19/24 03:56 10/19/24 03:54
I&O
10/18/24 10/19/24 10/20/24
06:59 06:59 06:59
Intake Total 200 / 200
Balance 200 / 200
Review of Systems
-
History Source: Patient
Constitutional: Reports No Symptoms
EENT: Reports No Symptoms Reported
Respiratory: Reports No Symptoms
Cardiac: Reports No Symptoms
Abdomen/GI: Reports No Symptoms
Genitourinary: Reports No Symptoms
Musculoskeletal: Reports Joint Pain
Skin: Reports No Symptoms
Neuro: Reports No Symptoms
Physical Exam
-
HEENT: Normocephalic and Atraumatic
Respiratory: Clear to Auscultation
Cardiac: Regular Rhythm and Other (no murmurs on my exam)
GI: Soft and Nontender
Musculoskeletal: No Edema
Neuro: Awake and Alert
Psych: Calm
[2024-10-19] MEDS: PROTONIX 40 MG PO (09:08)
[2024-10-19] MEDS: LOW STRENGTH ASPIRIN 81 MG PO (09:09)
[2024-10-19 09:10] VITALS: BP 134/78
[2024-10-19] MEDS: TOPROL XL 50 MG PO (09:10)
[2024-10-19 11:20] VITALS: BP 139/79
--- NOTE | 2024-10-19 11:34 | W.PN.CARDCBS ---
Addendum entered and electronically signed by Marco Sheppard MD 10/19/24 12:00:
I saw and examined the patient.
The Ent Nurse's note was reviewed and I agree with the note.
Comment: Briefly, 79-year-old man past medical history of multivessel CAD status post CABG and complete heart block status post permanent pacemaker who presented following an episode of exertional dyspnea. No obvious ischemic changes on ECG,
troponins serially undetectable x 4 and echo here with normal LV function and no regional wall motion abnormalities. His permanent pacemaker was interrogated which showed 8 seconds of nonsustained VT which occurred this past week. With concern for
underlying ischemia he underwent left heart catheterization on 10/18/2024 showing widely patent bypass grafts.
Patient feels well today, resting comfortably in bed in the IVU, no cardiac complaints
No ventricular ectopy seen on review of telemetry
Home metoprolol dose has been increased given his episode of nonsustained VT
Otherwise he should continue on his usual doses Xarelto and Crestor
Stable for discharge from my perspective. Outpatient follow-up has been arranged.
Original Note:
Today's Communication / Plan
-
Toprol 50 mg twice daily
Resume Xarelto. Stop aspirin
Follow rhythm through device
Outpatient cardiac follow-up arranged
Okay for discharge to home
Impression / Plan
-
Primary Technical Asst: Dr. Vallejo
Assessment:
Presentation with CP, SOB
Negative trop x1
8 seconds VT 10/13/24
CAD
status post CABG x 3 PRICE to LAD, SVG to diagonal, SVG to OM, BINDU clip 10/10/2020
stable bypass grafts by cath 10/18/24
Postoperative paroxysmal atrial fibrillation
History of suspected TIA
Chronic anticoagulation with Xarelto
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
History of pleural effusion status postthoracentesis 10/2020 post bypass
Hypertension
Hyperlipidemia
History of prostate cancer
Interstitial cystitis
Daily ETOH
ECHO 11/2020: EF 59%, abnormal septal motion consistent with postop status, stage II diastolic dysfunction, pacer wire in RV, MAC, prolapse of posterior mitral leaflet present, mild to moderate MR, mild TR, PAP 26 mmHg
ECHO 10/18/24: EF 50 to 55%, mildly dilated RV, pacer wire in right heart, mild to moderate MR, moderate TR, PAP 21 mmHg
Plan:
- Patient presented with episode of chest discomfort and shortness of breath, as well as 8-second episode of NSVT on 10/13
- Underwent cardiac catheterization 10/18/2024 which showed patent bypass grafts with known severe [place] coronary artery disease
- LVEDP 13 mmHg
- Echocardiogram with preserved EF, and stable valve disease
- Troponin serially negative
- Toprol dose has been increased this admission from 50 mg daily to 50 mg twice daily to continue upon discharge. He has not had any recurrences of NSVT on review of telemetry. Of note patient had been on maintenance dose of Toprol 100 mg daily
prior to his bypass surgery, however then was never increased back afterwards
- Will stop aspirin and resume outpatient Xarelto
- LDL 79. Continue Crestor
- Okay for discharge to home today
- outpatient cardiac follow-up Arranged
- d/w nursng. d/w hospitalist via TT
Progress Note - Technical Asst
Subjective
Date of Service: October 19, 2024
Denies chest pain, shortness of breath, palpitations. Reports no issues from left wrist site. Reports mild right groin soreness
Objective
Labs:
10/19/24 04:00
10/19/24 04:00
Labs
Hgb 15.2 g/dL (13.0-18.0) 10/19/24 04:00
Hct 44.9 % (39.0-52.0) 10/19/24 04:00
Plt Count 147 10^3/uL (130-400) 10/19/24 04:00
Sodium 138 mmol/L (135-145) 10/19/24 04:00
Potassium 4.0 mmol/L (3.5-5.1) 10/19/24 04:00
BUN 17 mg/dl (9-20) 10/19/24 04:00
Creatinine 0.7 mg/dL (0.7-1.3) 10/19/24 04:00
Glucose 101 mg/dl (70-99) H 10/19/24 04:00
Troponins
10/17/24 10/17/24 10/17/24
13:16 17:18 18:33
Troponin I < 0.012 < 0.012 < 0.012
10/17/24 10/18/24
23:44 00:26
Troponin I < 0.012 Cancelled
Vital Signs and I&O:
Vital Signs
Temp Pulse Resp BP Pulse Ox
98.1 F 76 20 134/78 95
10/19/24 11:20 10/19/24 09:16 10/19/24 11:20 10/19/24 09:10 10/19/24 11:20
Vital Signs
Temp Pulse Resp BP Pulse Ox
98.1 F 76 20 134/78 95
10/19/24 11:20 10/19/24 09:16 10/19/24 11:20 10/19/24 09:10 10/19/24 11:20
Intake & Output
10/17/24 10/18/24 10/19/24 10/20/24
07:59 07:59 07:59 07:59
Intake Total 200 / 200
Balance 200 / 200
Physical Exam
Physical Exam
GEN: No distress, awake, alert, oriented x3
HEENT: supple, anicteric, mmm, EOMI
LUNGS: CTA bilaterally, no wheezes/rales
CV: Reg, S1/S2, 1/6 murmur
ABD: soft, BS+, NT/ND
EXT: No cyanosis, clubbing, edema
NEURO: Gross non-focal
SKIN: Warm, pink, dry. No rash. Left wrist site with dressing clean dry and intact, nontender to palpation, mild isamar-incisional ecchymoses. Right groin site soft, nontender to palpation with dressing clean dry and intact
--- NOTE | 2024-10-19 15:58 | W.DCSUMMARY ---
Documented by User: Colt Restrepo MD, Resident 10/19/24 16:18
Discharge Summary
Discharge Data
Date of Admission: 10/17/24
Date of Discharge: 10/19/24
-
Pending Results: No
Hospital Course
Discharging Physician : Vincenzo Tim, Colt Restrepo
Disposition : Home
Primary care physician : Ap Pulido
Principal Discharge diagnosis : Chronic angina; chest pain/dyspnea on exertion
Chronic Discharge diagnosis : coronary artery bypass grafting x 3 using PRICE (free graft) to LAD, SV to diag., SV to terminal OM branch of L circ.; hypertension, hyperlipidemia, complete heart block, paroxysmal atrial fibrillation, ventricular
tachycardia, Hx prostate cancer; multiple epidural steroid injections
Hospital Course :
79 yo M who is presenting with symptoms concerning for suspected chronic angina after undergoing CABGx3 in 2020; chest pain/dyspnea on exertion that resolve with rest. He was also found to have an episode of ventricular tachycardia on 10/13 for
8-seconds that was asymptomatic. Cardiology was consulted for further management.
The following problems were addressed during this admission.
# Chronic angina s/p CABG x3 in 2020
# chest pain and dyspnea on exertion
- The patients symptoms are consistent with chronic angina.
- This patient's troponin trend was negative; EKG reassured against acute coronary syndrome
- Given that he experienced symptoms and a episode of ventricular tachcyardia (see below) despite CABGx3 in 2020, he underwent a left heart catheterization that showed all three grafts as widely patent.
- Echocardiogram (listed below) was largely stable from prior echocardiogram, except a noted decrease in LVEF from 59% to 50-55%.
- Per cardiology, metoprolol succinate was inceased to 50mg PO bid
- He was instructed to continue home rivaroxaban upon discharge
- Outpatient follow-up with cardiology has been arranged
# Episode of nonsustained ventricular tachycardia
- He was asymptomatic; and workup thus far did not reveal any clear abnormality, per cardiology
- Per cardiology, no ventricular ectopy seen on review of telemetry
- Anticipatory guidance provided and outpatient follow-up with cardiology has been arranged
# Paroxysmal atrial fibrillation
- Metoprolol succinate has been increased to 50mg PO bid
- Home rivaroxaban is to be continued upon discharge
# Complete heart block
- Pacemaker is in place
# Chronic issues per below
# HTN - metoprolol succinate 50mg PO is now BID
# HLD - continue rosuvastatin 40mg
# History of prostate cancer
# Interstitial cystitis - continue amitriptyline
# Osteoarthritis
Important imaging findings :
CXR 10/17/2024:
FINDINGS:
There is no parenchymal opacification or vascular congestion. The cardiomediastinal silhouettes are stable in size and configuration. Left atrial appendage closure device is again seen. Left-sided cardiac device is seen with intact wires in the
right atrium and right ventricle. There is no pneumothorax, pleural effusion or mediastinal shift. Sternal wires are again noted.
IMPRESSION:
No acute cardiopulmonary process.
Procedure findings :
EKG 10/17/2024 12:17
Vent. Rate : 87 BPM Atrial Rate : 87 BPM
P-R Int : 286 ms QRS Dur : 122 ms
QT Int : 392 ms P-R-T Axes : 14 -24 -1 degrees
QTcB Int : 471 ms
AV dual-paced rhythm with prolonged AV conduction
ABNORMAL ECG
WHEN COMPARED WITH ECG OF 31-Oct-2020 08:53,
VENT. RATE HAS DECREASED by 5 bpm
EKG 10/17/2024 18:43
Vent. Rate : 67 BPM Atrial Rate : 67 BPM
P-R Int : 324 ms QRS Dur : 98 ms
QT Int : 394 ms P-R-T Axes : 25 -8 -34 degrees
QTcB Int : 416 ms
Atrial-sensed ventricular-paced rhythm with prolonged AV conduction
ABNORMAL ECG
WHEN COMPARED WITH ECG OF 17-Oct-2024 12:17,
VENT. RATE HAS DECREASED by 20 bpm
EKG 10/17/2024 23:43
Vent. Rate : 64 BPM Atrial Rate : 64 BPM
P-R Int : 288 ms QRS Dur : 156 ms
QT Int : 490 ms P-R-T Axes : 75 -62 50 degrees
QTcB Int : 505 ms
AV dual-paced rhythm with prolonged AV conduction
ABNORMAL ECG
WHEN COMPARED WITH ECG OF 17-Oct-2024 18:43,
VENT. RATE HAS DECREASED by 3 bpm
Echocardiogram 10/18/2024
SUMMARY
1. Normal left ventricular size, wall thickness and systolic function. No regional wall motion abnormalities are seen.
2. Ejection fraction is 50-55% by visual assesment.
3. Right ventricular cavity size cavity is mildly dilated.
4. Right ventricular systolic function is within normal limits.
5. Pacer wire noted in the right heart.
6. Mild mitral annular calcification. mild to moderate mitral valve regurgitation.
7. Tricuspid valve opens normally. moderate tricuspid regurgitation. Estimated pulmonary artery pressure of 21 mmHg assuming a right atrial pressure of 3 mmHg.
8. When compared to prior study on 12/09/2020, left ventricle systolic function is 50-55% (previously 59%); no other significant changes.
Left Heart Catheterization 10/18/2024:
HEMODYNAMICS : (mmHg)
AO (s/d) : 149/52
LVEDP : 13
No significant gradient across the aortic valve to suggest aortic stenosis.
CORONARY FINDINGS
Dominance: Left
Left Main Trunk (LMT): There is a heavily calcified 90 to 95% mid left main stenosis.
Left Anterior Descending Artery (LAD): The LAD appears to be proximally 100% occluded with a patent PRICE graft to the LAD and a patent saphenous vein graft to a large diagonal branch with mild to moderate diffuse atherosclerotic plaque in the [place]
vessel.
Left Circumflex Artery (LCx): Large caliber dominant vessel that gives off 2major obtuse marginal (OM) branches as it courses along the atrio-ventricular (AV) groove. OM1 is a very small caliber vessel with mild luminal irregularities. OM 2 is
being supplied by a patent saphenous vein graft.
Right Coronary Artery (RCA): Small caliber nondominant vessel without significant coronary artery disease.
GRAFT ANGIOGRAPHY:
1. PRICE to LAD: Free PRICE graft coming off the saphenous vein graft from the aorta which supplies the diagonal. Widely patent.
2. Saphenous vein graft to large diagonal: Widely patent
3. Saphenous vein graft to OM is widely patent.
Femoral angiography: Femoral arteriotomy is noted to be above the bifurcation and below the inferior epigastric artery. There is minimal luminal irregularities in the visualized external iliac and femoral vessels.
CONCLUSIONS
1. Severe [place] coronary artery disease and a left dominant circulation.
2. All 3 grafts are widely patent.
3. LVEDP of 13 mmHg.
Discharge Plan
-
Patient Disposition: Home (Routine Discharge)
Discharge Diagnosis/Procedures: NSVT, Cardiac cath with stable bypass grafts
Condition: Fair
Diet: Low Cholesterol
Activity: As tolerated
Driving Restrictions: No driving for 24 hours
Bathing Restrictions: None
Stand Alone Forms: DC Instructions- Cath/EP Lab
Referrals:
Vincenzo Vallejo MD [Active, Cardiology] - 11/13/24 8:20 am
Ap Pulido MD [Family Provider, Internal Medicine] - in less than 1 week
Additional Discharge Medication Instructions: Please now take metoprolol succinate 50mg TWICE per day
You may continue your other home medications as below.
Please follow-up with cardiology on 11/13/2024 and with your PCP within 1 week.
If you experience any chest pain, shortness of breath, palpitations or any other new symptoms, you should present to the emergency department.
Prescriptions:
New
metoprolol succinate 50 mg Tablet Extended Release 24 Hr
50 mg PO BID Qty: 60 0RF
Continued
rivaroxaban [Xarelto] 20 MG tablet
20 mg PO QPM
pantoprazole 40 MG tablet,delayed release (DR/EC)
40 mg PO DAILY Qty: 30 2RF
psyllium Packet
1 packet PO MOWEFR@0800
glucosamine sulfate [Glucosamine] 500 mg Tablet
500 mg PO DAILY
amitriptyline 10 mg tablet
10 mg PO HS
diazepam 2 mg tablet
2 mg PO HS
rosuvastatin 40 MG tablet
40 mg PO HS
Discontinued
metoprolol succinate 50 MG tablet extended release 24 hr
50 mg PO HS
Discharge Orders:
Discharge Patient (As Directed); Ordered 10/19/24
Ordered By: Colt Restrepo
Care Plan Goals
Care Plan Goals:
Problem: Readiness for enhanced knowledge related to diagnosis and treatment plan
Goal: Understand your diagnosis and treatment plan needs, including medications if applicable.
Instructions: Know your diagnosis, underlying causes and treatment plan options, including medications if applicable. Consult with your health care team to learn about your diagnosis and treatment plan, including medications if applicable.
Discharge Date and Time
Discharge Date/Time: 10/19/24 13:05
Print Language: GREEK

Documented by User: Vincenzo Tim DO 10/19/24 17:22
Discharge Summary
Discharge Data
Date of Admission: 10/17/24
Date of Discharge: 10/19/24
Total time spent discharging patient (in min): 32
Discharge Plan
-
Patient Disposition: Home (Routine Discharge)
Discharge Diagnosis/Procedures: NSVT, Cardiac cath with stable bypass grafts
Condition: Fair
Diet: Low Cholesterol
Activity: As tolerated
Driving Restrictions: No driving for 24 hours
Bathing Restrictions: None
Stand Alone Forms: DC Instructions- Cath/EP Lab
Referrals:
Vincenzo Vallejo MD [Active, Cardiology] - 11/13/24 8:20 am
Ap Pulido MD [Family Provider, Internal Medicine] - in less than 1 week
Additional Discharge Medication Instructions: Please now take metoprolol succinate 50mg TWICE per day
You may continue your other home medications as below.
Please follow-up with cardiology on 11/13/2024 and with your PCP within 1 week.
If you experience any chest pain, shortness of breath, palpitations or any other new symptoms, you should present to the emergency department.
Prescriptions:
New
metoprolol succinate 50 mg Tablet Extended Release 24 Hr
50 mg PO BID Qty: 60 0RF
Continued
rivaroxaban [Xarelto] 20 MG tablet
20 mg PO QPM
pantoprazole 40 MG tablet,delayed release (DR/EC)
40 mg PO DAILY Qty: 30 2RF
psyllium Packet
1 packet PO MOWEFR@0800
glucosamine sulfate [Glucosamine] 500 mg Tablet
500 mg PO DAILY
amitriptyline 10 mg tablet
10 mg PO HS
diazepam 2 mg tablet
2 mg PO HS
rosuvastatin 40 MG tablet
40 mg PO HS
Discontinued
metoprolol succinate 50 MG tablet extended release 24 hr
50 mg PO HS
Discharge Orders:
Discharge Patient (As Directed); Ordered 10/19/24
Ordered By: Colt Restrepo
Care Plan Goals
Care Plan Goals:
Problem: Readiness for enhanced knowledge related to diagnosis and treatment plan
Goal: Understand your diagnosis and treatment plan needs, including medications if applicable.
Instructions: Know your diagnosis, underlying causes and treatment plan options, including medications if applicable. Consult with your health care team to learn about your diagnosis and treatment plan, including medications if applicable.
Discharge Date and Time
Discharge Date/Time: 10/19/24 13:05
Print Language: GREEK
== END 2024-10-19 13:05 | disposition home or self-care (01) | DRG 287 ==
LOC: IVU 17:03
PROVIDERS: Emergency Medicine; Internal Medicine Interventional Cardiology; Nurse Practitioner Family; Physician Assistant; ADMITTING PHYSICIAN Internal Medicine; ATTENDING PHYSICIAN Internal Medicine; EMERGENCY PHYSICIAN Emergency Medicine; FAMILY PHYSICIAN Internal Medicine; OTHER PHYSICIAN Internal Medicine Cardiovascular Disease
PROC: 4A023N7 Measurement of Cardiac Sampling and Pressure, Left Heart, Percutaneous Approach (ICD-10-PCS; 2024-10-18)
PROC: B213YZZ Fluoroscopy of Multiple Coronary Artery Bypass Grafts using Other Contrast (ICD-10-PCS; 2024-10-18)
PROC: B211YZZ Fluoroscopy of Multiple Coronary Arteries using Other Contrast (ICD-10-PCS; 2024-10-18)
DX: I25.118 Atherosclerotic heart disease of native coronary artery with other forms of angina pectoris (principal); I47.20 Ventricular tachycardia, unspecified; I44.2 Atrioventricular block, complete; I10 Essential (primary) hypertension; E78.00 Pure hypercholesterolemia, unspecified; I48.0 Paroxysmal atrial fibrillation; M19.90 Unspecified osteoarthritis, unspecified site; N30.10 Interstitial cystitis (chronic) without hematuria; Z95.1 Presence of aortocoronary bypass graft; Z95.0 Presence of cardiac pacemaker; Z85.46 Personal history of malignant neoplasm of prostate; Z82.49 Family history of ischemic heart disease and other diseases of the circulatory system; Z79.899 Other long term (current) drug therapy; Z79.01 Long term (current) use of anticoagulants; Z86.73 Personal history of transient ischemic attack (TIA), and cerebral infarction without residual deficits
CPT/HCPCS: 71046; 80048; 80053; 80061; 83036; 83880; 84484; 85025; 93005; 93288; 93306; 93459; 99152; 99153; 99285; C1760; C1894; Q9967

== ENCOUNTER → 2024-12-01 06:42 | Outpatient (REF) | payer MEDICARE, OTHER, SELFPAY ==
[2024-12-01 07:43] LABS: Hematocrit 45.6 % (39.0-52.0); Hemoglobin 15.1 g/dL (13.0-18.0); Mean Corp Hgb Conc. 33.1 g/dL (33.0-37.0); Mean Corpuscular Volume 93.3 fL (80.0-94.0); Nucleated Red Blood Cells % 0 % (-); Platelet Count 159 10^3/uL (130-400); Red Cell Dist. Width 13.1 % (11.5-14.5)
[2024-12-01 08:24] LABS: ALT (SGPT) 40 U/L (0-50); AST (SGOT) 28 U/L (17-59); Albumin 4.6 g/dl (3.5-5.0); Alkaline Phosphatase 57 U/L (38-126); Blood Urea Nitrogen 24 mg/dl (9-20); Calcium 9.6 mg/dl (8.4-10.2); Carbon Dioxide 31 mmol/L (22-30); Chloride 105 mmol/L (98-107); Glucose 110 mg/dl (70-99); HDL Cholesterol 69 mg/dl; LDL Cholesterol, Calculated 67 mg/dl; Potassium 4.3 mmol/L (3.5-5.1); Sodium 141 mmol/L (135-145); Total Protein 7.4 g/dl (6.3-8.2); Very Low Density Lipoprotein 27 mg/dl (0-30); eGFR > 60.00
[2024-12-01 08:59] LABS: PSA, Total - Screen < 0.06 ng/ml (0.0-4.0); TSH 3.19 uIU/ml (0.47-4.68)
[2024-12-01 10:37] LABS: Glycohemoglobin (HgbA1c) 5.6 % (4.0-5.6)
== END ==
LOC: REG 06:42
PROVIDERS: ATTENDING PHYSICIAN Internal Medicine
DX: Z00.00 Encounter for general adult medical examination without abnormal findings (principal); R53.83 Other fatigue; Z12.5 Encounter for screening for malignant neoplasm of prostate; R73.03 Prediabetes; R07.9 Chest pain, unspecified
CPT/HCPCS: 36415; 80053; 80061; 83036; 84443; 85025; G0103

== ENCOUNTER 2025-02-11 17:43 | Emergency (ER) | payer MEDICARE, OTHER, SELFPAY ==
[2025-02-11 17:43] VITALS: BMI 33.7
[2025-02-11 17:51] VITALS: BP 190/80
[2025-02-11 18:08] VITALS: BP 183/71
[2025-02-11 18:19] LABS: Hematocrit 44.1 % (39.0-52.0); Hemoglobin 14.9 g/dL (13.0-18.0); Mean Corp Hgb Conc. 33.8 g/dL (33.0-37.0); Mean Corpuscular Volume 92.6 fL (80.0-94.0); Nucleated Red Blood Cells % 0 % (-); Platelet Count 142 10^3/uL (130-400); Red Cell Dist. Width 13.1 % (11.5-14.5)
[2025-02-11 18:23] LABS: INR 1.46; PT 17.9 Sec (11.4-14.6)
[2025-02-11 18:30] VITALS: BP 139/62
[2025-02-11 18:37] LABS: ALT (SGPT) 37 U/L (0-50); AST (SGOT) 31 U/L (17-59); Albumin 4.7 g/dl (3.5-5.0); Alkaline Phosphatase 56 U/L (38-126); Blood Urea Nitrogen 21 mg/dl (9-20); Calcium 9.5 mg/dl (8.4-10.2); Carbon Dioxide 21 mmol/L (22-30); Chloride 108 mmol/L (98-107); Estimated Creatinine Clearance 74 ml/min; Glucose 130 mg/dl (70-99); Potassium 3.7 mmol/L (3.5-5.1); Sodium 141 mmol/L (135-145); Total Protein 7.4 g/dl (6.3-8.2); eGFR > 60.00
[2025-02-11 18:42] LABS: Magnesium 2.2 mg/dl (1.6-2.3)
[2025-02-11 18:50] LABS: Troponin I 0.014 ng/ml
--- NOTE | 2025-02-11 18:53 | ED.GENMED ---
History of Present Illness
General
Chief Complaint: Heart Rate Problem
Time Seen by Provider: 02/11/25 18:22
History of Present Illness
History of Present Illness:
Patient is a 79-year-old man with history of complete heart block status post pacemaker, CAD status post CABG presenting to the emergency department for low heart rate. Patient states that he was sitting when his watch alerted him that his heart
rate was in the 40s. He is asymptomatic. He will look through his Apple Watch data and appears since February 07 he has been having low heart rate alerts. Patient denies any lightheadedness dizziness chest pain difficulty breathing. He does
state that his pacemaker is 8 years old.
Past History
Past History
ED Past Medical History: Arrthythmia, Cancer, HTN and Hypercholesterolemia
ED Past Surgical History: Urological (Prostatectomy)
Social History
Tobacco: Non-smoker
Personal:
Living: with family
Phy Exam
Physical Exam
Physical Exam:
GENERAL: in no acute distress
HEENT: normocephalic, extraocular movements intact, moist oral mucosa
NECK: normal inspection
RESPIRATORY: no respiratory distress, clear to auscultation bilaterally
CARDIOVASCULAR: regular rate and rhythm
ABDOMEN/: soft, non-distended, non-tender to palpation, no rebound or guarding
EXTREMITIES: non-tender, no edema/swelling
NEUROLOGIC: awake and alert, moves all extremities
SKIN: warm
Course
Orders/Labs/Results
Orders:
Orders
02/11/25 17:46
ECG [Electrocardiogram (*1)] Urgent
Reason for Study: Bradycardia / Tachycardia
EKG- Treatment ONCE
02/11/25 17:54
Interrogate Pacemaker- Treatment ONCE
02/11/25 18:06
Complete Blood Count/With Diff Urgent
Comprehensive Metabolic Panel Urgent
Magnesium Urgent
Comment: ADD ON
Prothrombin Time Urgent
Troponin I Urgent
02/11/25 18:22
CR Chest Portable - 1 View Urgent
Comment:
Reason For Exam: pacemaker lead
Reason Study Needs to be Portable: Patient Unstable
02/11/25 18:32
Add On- LAB Urgent
Tests Added?: magnesium
Abnormal Lab Results
02/11/25
18:06
MCH 31.3 H pg
(27.0-31.0)
Absolute Monos (auto) 0.9 H 10^3/uL
(0.1-0.6)
Monocytes % 11.6 H %
(1.7-9.3)
PT 17.9 H Sec
(11.4-14.6)
Chloride 108 H mmol/L
(98-107)
Carbon Dioxide 21 L mmol/L
(22-30)
BUN 21 H mg/dl
(9-20)
Glucose 130 H mg/dl
(70-99)
02/11/25 18:06
02/11/25 18:06
Vital Signs
Initial and Last Documented VS:
Initial Vital Signs
Temp Pulse Resp BP Pulse Ox
97.4 F 42 16 190/80 97
02/11/25 17:51 02/11/25 17:51 02/11/25 17:51 02/11/25 17:51 02/11/25 17:51
Last Documented Vital Signs
Temp Pulse Resp BP Pulse Ox
97.4 F 83 19 139/62 94
02/11/25 17:51 02/11/25 18:45 02/11/25 18:45 02/11/25 18:30 02/11/25 18:55
MDM/Problems Addressed
Differential Diagnosis Includes:
Patient is a 79-year-old male with history of complete heart block status post pacemaker, CAD status post CABG presenting to the emergency department with concerns for low heart rate. On arrival patient's heart was in the 40s but exam is otherwise
reassuring. His blood pressure is stable. Concern for electrolyte derangement versus lead fracture versus oversensing. Considered ACS though less likely. Blood work obtained prior to my evaluation is unremarkable. Will add on magnesium. Will
interrogate pacer. Will also chest x-ray and EKG
*Pulse Oximetry
SaO2: 94
Oxygen Mode of Delivery: Room air
Patient hypoxic: no
*Critical Care Note
Total Time (30-74mins, 75-104mins- exclusive of procedures): Not Applicable
Update Note
Update Note:
Chest x-ray per my interpretation with no obviously fracture. EKG per my interpretation consistent with bigeminy. I did receive a call from device rep stating that there is concern for over sensing a possible lead fracture. On reevaluation heart
rate is now in the 70s. Patient gautam asymptomatic during the emergency department visit.
I did discuss with on-call cardiology Dr. Vallejo who stated that given the patient is asymptomatic can be discharged and they review interrogation and will call tomorrow to schedule an appointment.
ED Attending Note
-
Portions of this chart may have been created with voice recognition software.� Occasional wrong word or��sound alike� substitutions may have occurred due to the inherent limitations of voice recognition software.
Discharge Plan
Departure
Patient Disposition: Home (Routine Discharge)
Date of Disposition: 02/11/25
Time of Disposition: 19:37
Patient with high blood pressure during this ER visit?: Yes
Discharge Problem:
intermittent bradycardia
Prescriptions:
No Action
rivaroxaban [Xarelto] 20 MG tablet
20 mg PO QPM
pantoprazole 40 MG tablet,delayed release (DR/EC)
40 mg PO DAILY Qty: 30 2RF
psyllium Packet
1 packet PO MOWEFR@0800
glucosamine sulfate [Glucosamine] 500 mg Tablet
500 mg PO DAILY
amitriptyline 10 mg tablet
10 mg PO HS
diazepam 2 mg tablet
2 mg PO HS
rosuvastatin 40 MG tablet
40 mg PO HS
metoprolol succinate 50 mg Tablet Extended Release 24 Hr
50 mg PO BID Qty: 60 0RF
Referrals:
Ap Pulido MD [Family Provider, Internal Medicine]
Activity Restrictions/Additional Instructions:
Thank You for choosing [facility].
It was a pleasure meeting you and taking part in your care.
You were seen in the Emergency Department today for for low heart rate. While you were here we performed blood work, which was reassuring.
We would like for you to follow up with your plant assigner for further evaluation. If you experience fever, worsening of your symptoms, or develop any other new or concerning symptoms, please return to the Emergency Department immediately.
Please see the attached sheet for additional information.
Interventions
Interventions:
*Risk Screen - Suicide Last Done: 02/11/25 17:51
*General Assessment Last Done: 02/11/25 18:13
*Neglect/Abuse Screening Last Done: 02/11/25 17:51
*ED COVID-19 Vaccine History Last Done: 02/11/25 18:13
*ED Influenza Vaccine History Last Done: 02/11/25 18:13
[facility] Fall Risk Assessment Tool Last Done: 02/11/25 18:13
ED- Cardiac Assessment Last Done: 02/11/25 18:13
ED- Pulmonary Assessment Last Done: 02/11/25 18:13
Discharge Date and Time
Print Language: UKRAINIAN
[2025-02-11 19:00] VITALS: BP 140/73
[2025-02-11 19:30] VITALS: BP 138/62
== END 2025-02-11 19:46 | disposition home or self-care (01) ==
LOC: EMR 17:43
PROVIDERS: Emergency Medicine; EMERGENCY PHYSICIAN Student in an Organized Health Care Education/Training Program; FAMILY PHYSICIAN Internal Medicine
DX: R00.1 Bradycardia, unspecified (principal); I44.2 Atrioventricular block, complete; I25.810 Atherosclerosis of coronary artery bypass graft(s) without angina pectoris; I10 Essential (primary) hypertension; E78.00 Pure hypercholesterolemia, unspecified; Z95.0 Presence of cardiac pacemaker; Z95.1 Presence of aortocoronary bypass graft
CPT/HCPCS: 99284; 71045; 80053; 83735; 84484; 85025; 85610; 93005